=== PATIENT | male | born 1995 | race African-American/Black ===

== ENCOUNTER 2022-07-23 13:11 | Emergency (ER) | payer OTHER ==
[~2022-07-23] VITALS: Ht 172.7 cm; Wt 68.0 kg
--- NOTE | 2022-07-23 13:56 | NUR ---
DR DEL TORO AT BEDSIDE FOR EVAL.
[2022-07-23] MEDS ORDERED: DICYCLOMINE HCL 10 MG/5 ML UDC PO ONE (14:00)
--- NOTE | 2022-07-23 14:00 | NUR ---
TRANSCRIBING [employer]PER[employer] AT BEDSIDE FOR BLOOD DRAW.
[2022-07-23] MEDS ORDERED: DICYCLOMINE HCL 10 MG CAPSULE PO ONE (14:03)
[2022-07-23 14:24] LABS: BASOPHILS % (AUTO) 0.2 % (0.0-2.0); EOSINOPHILS % (AUTO) 1.1 % (0.0-6.0); HEMATOCRIT 42 % (39-51); LYMPHOCYTES # (AUTO) 1.3 K/uL (0.8-4.8); LYMPHOCYTES % (AUTO) 28.3 % (20.0-44.0); MEAN CORPUSCULAR HGB CONC 34 g/dl (31.0-36.0); MEAN CORPUSCULAR VOLUME 88 fL (80-96); MONOCYTES # (AUTO) 0.3 K/uL (0.1-1.30); MONOCYTES % (AUTO) 5.3 % (2.0-12.0); NEUTROPHILS # (AUTO) 3.1 K/uL (1.8-8.9); NEUTROPHILS % (AUTO) 65.1 % (43.0-81.0); PLATELET COUNT (AUTO) 240 K/uL (150-450); RED BLOOD CELL COUNT(AUTO) 4.74 MIL/uL (4.5-6.0); WHITE BLOOD COUNT (AUTO) 4.7 K/uL (4.3-11.0)
[2022-07-23] MEDS ORDERED: DICY10CA13 PO (14:43)
[2022-07-23 14:54] LABS: CREATININE 0.8 mg/dL (0.6-1.3); MAGNESIUM 2.1 mg/dL (1.8-2.4); POTASSIUM 3.6 mmol/L (3.5-5.1)
[2022-07-23 15:45] VITALS: BP 125/80
--- NOTE | 2022-07-23 15:45 | NUR ---
Patient discharged to home in stable condition. Written and verbal after care instructions given. Patient verbalizes understanding of instruction.
== END 2022-07-23 15:46 | disposition home or self-care (01) ==
LOC: ER 13:15
DX: K52.9 Noninfective gastroenteritis and colitis, unspecified (principal); Z79.899 Other long term (current) drug therapy
CPT/HCPCS: 36415; 80048-TC; 83735-TC; 85025-TC

== ENCOUNTER 2023-12-19 13:38 | Emergency (ER) | payer OTHER ==
[~2023-12-19] VITALS: Ht 167.6 cm; Wt 68.0 kg
[~2023-12-19 13:38] MED LIST: DICY10CA13 PO
[2023-12-19] MEDS: ONDANSETRON HCL/PF 4 MG/2 ML VIAL IVP ONE (14:00)
[2023-12-19] MEDS: IV NS 0.9% 1,000 ML BAG IV ONE (14:00)
[2023-12-19] MEDS ORDERED: ONDANSETRON HCL/PF 4 MG/2 ML VIAL ONE (14:03)
[2023-12-19] MEDS ORDERED: ONDA4TAB11 PO (14:14)
[2023-12-19 14:46] LABS: BASOPHILS % (AUTO) 0.4 % (0.0-2.0); EOSINOPHILS % (AUTO) 0.7 % (0.0-6.0); HEMATOCRIT 39 % (39-51); HEMOGLOBIN 13.7 g/dL (13.5-17.5); LYMPHOCYTES # (AUTO) 1.3 K/uL (0.8-4.8); LYMPHOCYTES % (AUTO) 34.5 % (20.0-44.0); MEAN CORPUSCULAR HEMOGLOBIN 30 PG (26.0-33.0); MEAN CORPUSCULAR HGB CONC 35 g/dl (31.0-36.0); MEAN CORPUSCULAR VOLUME 85 fL (80-96); MONOCYTES # (AUTO) 0.4 K/uL (0.1-1.30); MONOCYTES % (AUTO) 9.8 % (2.0-12.0); NEUTROPHILS # (AUTO) 2.1 K/uL (1.8-8.9); NEUTROPHILS % (AUTO) 54.6 % (43.0-81.0); PLATELET COUNT (AUTO) 230 K/uL (150-450); RED BLOOD CELL COUNT(AUTO) 4.61 MIL/uL (4.5-6.0); RED CELL DISTRIBUTION WIDTH 12.8 % (11.5-15.0); WHITE BLOOD COUNT (AUTO) 3.8 K/uL (4.3-11.0)
[2023-12-19 14:51] LABS: CALCIUM, SERUM 9.5 mg/dL (8.5-10.1); CREATININE 0.8 mg/dL (0.6-1.3); POTASSIUM 3.9 mmol/L (3.5-5.1)
[2023-12-19 15:25] VITALS: BP 128/78; TEMP 98.3; O2SAT 100
== END 2023-12-19 15:28 | disposition home or self-care (01) ==
LOC: ER 13:48
DX: E86.0 Dehydration (principal); R53.83 Other fatigue; Z79.899 Other long term (current) drug therapy
CPT/HCPCS: 99283; 96374; 96361; 85025; 80048; 36415; J2405; J7030